=== PATIENT | male | born 1970 | race African-American/Black ===

== ENCOUNTER 2017-04-01 02:42 | Emergency (ER) | payer MEDICAID ==
[~2017-04-01] VITALS: Ht 177.8 cm; Wt 71.4 kg
[2017-04-01 02:44] VITALS: BP 177/100
[2017-04-01] MEDS ORDERED: HYDROcodone/APAP 5/325 TABLET PO ONE (03:30)
[2017-04-01] MEDS ORDERED: ONDANSETRON ODT 4 MG PO ONE (03:30)
[2017-04-01] MEDS ORDERED: KETOROLAC 30 MG/1 ML IM ONE (03:30)
[2017-04-01] MEDS ORDERED: ONDANSETRON ODT 4 MG ONE (03:36)
[2017-04-01] MEDS ORDERED: HYDROcodone/APAP 5/325 TABLET ONE (03:37)
[2017-04-01] MEDS ORDERED: KETOROLAC 30 MG/1 ML ONE (03:37)
== END 2017-04-01 04:10 | disposition home or self-care (01) ==
LOC: ED 04:02
DX: G89.29 Other chronic pain (principal); M25.552 Pain in left hip
CPT/HCPCS: 73502; 96372; 99284; J1885; Q0162

== ENCOUNTER 2017-07-28 20:16 | Emergency (ER) | payer MEDICAID ==
[~2017-07-28] VITALS: Ht 175.3 cm; Wt 75.7 kg
[2017-07-28 20:20] VITALS: BP 130/80
== END 2017-07-28 21:10 | disposition home or self-care (01) ==
LOC: ED 21:00
DX: Z76.0 Encounter for issue of repeat prescription (principal); G89.29 Other chronic pain; M25.552 Pain in left hip
CPT/HCPCS: 99281